=== PATIENT | female | born 1955 | race Caucasian/White ===

== ENCOUNTER 2017-06-11 14:28 | Inpatient (IN) | payer OTHER ==
[~2017-06-11] VITALS: Ht 160 cm; Wt 77.3 kg
[2017-06-11 16:01] LABS: HEMOGLOBIN 10.4 gm/dl (12.3-15.3); RED BLOOD COUNT 3.49 M/UL (4.00-5.10); WHITE BLOOD COUNT 8.4 K/UL (4.5-11.0)
[2017-06-11 16:23] LABS: BUN/CREATININE RATIO 18 (0-10)
[2017-06-11] MEDS ORDERED: CATAPRES 0.1MG0.1 MG PO (22:58)
[2017-06-11] MEDS ORDERED: ZESTRIL 40 MG T40 MG PO (23:02)
[2017-06-11] MEDS ORDERED: NORVASC10 MG PO (23:03)
[2017-06-11] MEDS ORDERED: ASPIR 8181 MG PO (23:04)
[2017-06-11] MEDS ORDERED: NEURONTIN400 MG PO (23:07)
[2017-06-11] MEDS ORDERED: QUETIAPINE FUM100 MG PO (23:09)
[2017-06-11] MEDS ORDERED: INDOCIN 50 MG C50 MG PO (23:10)
[2017-06-11] MEDS ORDERED: MIRTAZAPINE15 MG PO (23:13)
[2017-06-11] MEDS ORDERED: SINGULAIR10 MG PO (23:14)
[2017-06-11] MEDS ORDERED: ZANTAC 150 MG150 MG PO (23:15)
[2017-06-11] MEDS ORDERED: VISTARIL 25 MG25 MG PO (23:16)
[2017-06-11] MEDS ORDERED: ZOFRAN ODT4 MG PO (23:17)
[2017-06-11] MEDS ORDERED: TRAMADOL-ACETA1 EACH PO (23:18)
[2017-06-11 23:26] LABS: HEMOGLOBIN 10.2 gm/dl (12.3-15.3)
[2017-06-12 07:16] LABS: HEMOGLOBIN 11.3 gm/dl (12.3-15.3)
[2017-06-13 04:29] LABS: HEMOGLOBIN 10.2 gm/dl (12.3-15.3); RED BLOOD COUNT 3.51 M/UL (4.00-5.10)
[2017-06-13 04:31] LABS: WHITE BLOOD COUNT 5.8 K/UL (4.5-11.0)
[2017-06-13 04:34] LABS: ADENOVIRUS F 40/41 Not Detected (Negative); ASTROVIRUS Not Detected (Negative); CAMPYLOBACTER Not Detected (Negative); CLOSTRIDIUM DIFFICILE TOX A/B Not Detected (Negative); CRYPTOSPORIDIUM Not Detected (Negative); E.COLI 0157 Not Detected (Negative); ENTAMOEBA HISTOLYTICA Not Detected (Negative); ENTEROAGGREGATIVE E.COLI (EAEC Not Detected (Negative); GIARDIA LAMBLIA Not Detected (Negative); NOROVIRUS GI/GII Not Detected (Negative); PLESIOMONAS SHIGELLOIDES Not Detected (Negative); ROTOVIRUS A Not Detected (Negative); SALMONELLA Not Detected (Negative); SAPOVIRUS Not Detected (Negative); SHIGA-LIK TOX.PRO.E.COLI (STEC Not Detected (Negative); VIBRIO Not Detected (Negative); VIBRIO CHOLERAE Not Detected (Negative); YERSINIA ENTEROCOLITICA Not Detected (Negative)
[2017-06-13 15:33] LABS: ENTEROPATHOGENIC E.COLI (EPEC) DETECTED (Negative)
[2017-06-13 15:34] LABS: ENTEROTOXIGENIC E.COLI (ETEC) DETECTED (Negative)
[2017-06-14 04:25] LABS: HEMOGLOBIN 9.9 gm/dl (12.3-15.3); RED BLOOD COUNT 3.42 M/UL (4.00-5.10)
[2017-06-14 04:27] LABS: WHITE BLOOD COUNT 7.5 K/UL (4.5-11.0)
[2017-06-15 04:22] LABS: RED BLOOD COUNT 4.68 M/UL (4.00-5.10); WHITE BLOOD COUNT 9.6 K/UL (4.5-11.0)
[2017-06-15 04:23] LABS: HEMOGLOBIN 14.2 gm/dl (12.3-15.3)
[2017-06-15 04:40] LABS: BUN/CREATININE RATIO 28 (0-10)
[2017-06-16 05:45] LABS: WHITE BLOOD COUNT 12.7 K/UL (4.5-11.0)
[2017-06-16 07:09] LABS: BUN/CREATININE RATIO 17 (0-10)
[2017-06-16 07:31] LABS: RED BLOOD COUNT 4.02 M/UL (4.00-5.10)
[2017-06-16 07:32] LABS: HEMOGLOBIN 11.7 gm/dl (12.3-15.3)
[2017-06-16 15:05] LABS: SHIG/ENTEROINVAS.ECOLI (EIEC) DETECTED (Negative)
[2017-06-16 23:02] LABS: ADENOVIRUS F 40/41 Not Detected (Negative); ASTROVIRUS Not Detected (Negative); CAMPYLOBACTER Not Detected (Negative); CLOSTRIDIUM DIFFICILE TOX A/B Not Detected (Negative); CRYPTOSPORIDIUM Not Detected (Negative); E.COLI 0157 Not Detected (Negative); ENTAMOEBA HISTOLYTICA Not Detected (Negative); ENTEROAGGREGATIVE E.COLI (EAEC Not Detected (Negative); ENTEROPATHOGENIC E.COLI (EPEC) Not Detected (Negative); ENTEROTOXIGENIC E.COLI (ETEC) Not Detected (Negative); GIARDIA LAMBLIA Not Detected (Negative); NOROVIRUS GI/GII Not Detected (Negative); PLESIOMONAS SHIGELLOIDES Not Detected (Negative); ROTOVIRUS A Not Detected (Negative); SALMONELLA Not Detected (Negative); SAPOVIRUS Not Detected (Negative); SHIG/ENTEROINVAS.ECOLI (EIEC) Not Detected (Negative); SHIGA-LIK TOX.PRO.E.COLI (STEC Not Detected (Negative); VIBRIO Not Detected (Negative); VIBRIO CHOLERAE Not Detected (Negative); YERSINIA ENTEROCOLITICA Not Detected (Negative)
[2017-06-17 05:30] LABS: BUN/CREATININE RATIO 14 (0-10)
[2017-06-18 05:42] LABS: BUN/CREATININE RATIO 12 (0-10)
[2017-06-19 05:44] LABS: BUN/CREATININE RATIO 7 (0-10)
[2017-06-20 05:41] LABS: BUN/CREATININE RATIO 7 (0-10)
[2017-06-21] MEDS ORDERED: IRON325 M1 PO (16:59)
[2017-06-21] MEDS ORDERED: PROTONIX40 MG PO (17:00)
[2017-06-21] MEDS ORDERED: LACTINEX TABLET1 EA PO (17:01)
[2017-06-21] MEDS ORDERED: HYDRALAZINE HCL25 MG PO (17:02)
[2017-06-21] MEDS ORDERED: NEURONTIN 100100 MG PO (17:34)
== END 2017-06-21 18:43 | disposition home or self-care (01) | DRG 682 ==
LOC: ER1 14:28 → M/S 18:12 → ZEROF 18:12 → PROG CARE 18:12 → M/S 06-16 14:50
PROVIDERS: Family Medicine; Internal Medicine; ADMIT Family Medicine
PROC: 06HM33Z Insertion of Infusion Device into Right Femoral Vein, Percutaneous Approach (ICD-10-PCS; principal; 2017-06-17)
DX: N17.9 Acute kidney failure, unspecified (principal); G92 Toxic encephalopathy; R57.1 Hypovolemic shock; E87.2 Acidosis; F11.20 Opioid dependence, uncomplicated; K92.2 Gastrointestinal hemorrhage, unspecified; E86.0 Dehydration; K52.9 Noninfective gastroenteritis and colitis, unspecified; J84.10 Pulmonary fibrosis, unspecified; D50.9 Iron deficiency anemia, unspecified; I10 Essential (primary) hypertension; E87.6 Hypokalemia; K21.9 Gastro-esophageal reflux disease without esophagitis; E88.09 Other disorders of plasma-protein metabolism, not elsewhere classified; Z22.322 Carrier or suspected carrier of Methicillin resistant Staphylococcus aureus; M19.90 Unspecified osteoarthritis, unspecified site; G89.29 Other chronic pain; M54.9 Dorsalgia, unspecified; F32.9 Major depressive disorder, single episode, unspecified; F41.9 Anxiety disorder, unspecified; Z91.14 Patient's other noncompliance with medication regimen; Z79.82 Long term (current) use of aspirin; Z79.899 Other long term (current) drug therapy; Z90.49 Acquired absence of other specified parts of digestive tract; Z98.890 Other specified postprocedural states; Z80.0 Family history of malignant neoplasm of digestive organs; Z82.49 Family history of ischemic heart disease and other diseases of the circulatory system; Z83.3 Family history of diabetes mellitus
CPT/HCPCS: ECHO; 36415; 70450; 71010; 71020; 80048; 80053; 80202; 80307; 81001; 82272; 82436; 82550; 82553; 82570; 82962; 83036; 83540; 83550; 83605; 83735; 83874; 83880; 84132; 84133; 84156; 84300; 84439; 84443; 84484; 85014; 85018; 85025; 85027; 85045; 85610; 85730; 86140; 86850; 86900; 86901; 86920; 87040; 87070; 87077; 87086; 87186; 87205; 87507; 93005; 93306; 94640; 94664; 96361; 96374; 97110; 97116; 97530; 97535; 99291; C1751; G0480; J0360; J0780; J1265; J2310; J2405; J2550; J3370; J3480; J3486; J7030; J7040; J7050; J7070

== ENCOUNTER 2022-05-25 15:40 | Emergency (ER) | payer OTHER ==
[~2022-05-25 15:40] MED LIST: ASPIR 8181 MG PO; AUGMENTIN 875-1 EACH PO; CATAPRES 0.1MG0.1 MG PO; HYDRALAZINE HCL25 MG PO; IBUPROFEN600 MG PO; INDOCIN 50 MG C50 MG PO; IRON325 M1 PO; K-DUR TAB 20 M20 MEQ PO; LACTINEX TABLET1 EA PO; LEVAQUIN750 MG PO; MIRALAX17 GM PO; MIRTAZAPINE15 MG PO; NEURONTIN 100100 MG PO; NEURONTIN400 MG PO; NORVASC10 MG PO; PHENERGAN 12.12.5 M1 PO; PHENERGAN 25 MG25 M1 PO; POTASSIUM CHLO20 ME2 PO; PREDNISONE10 MG PO; PREDNISONE20 MG PO; PROTONIX40 MG PO; QUETIAPINE FUM100 MG PO; SEROQUEL100 MG PO; SINGULAIR10 MG PO; TRAMADOL HCL50 MG PO; TRAMADOL-ACETA1 EACH PO; VISTARIL 25 MG25 MG PO; ZANTAC 150 MG150 MG PO; ZESTRIL 40 MG T40 MG PO; ZOFRAN ODT 4 MG4 MG PO; ZOFRAN ODT4 MG PO; ZOFRAN4 MG PO; ZOFRAN8 MG PO
[2022-05-25 17:18] LABS: HEMOGLOBIN 13.3 gm/dl (12.3-15.3); RED BLOOD COUNT 4.09 M/UL (4.00-5.10); WHITE BLOOD COUNT 4.9 K/UL (4.5-11.0)
[2022-05-25 17:42] LABS: BUN/CREATININE RATIO 18 (0-10)
[2022-05-25] MEDS ORDERED: ASPIRIN CHEWABL81 MG PO (18:52)
[2022-05-25] MEDS ORDERED: NITROSTAT0.4 MG SL (18:52)
== END 2022-05-25 19:07 | disposition short-term general hospital (02) ==
LOC: ER1 15:40 → CDU 17:56 → ER1 19:07
PROVIDERS: Emergency Medicine
DX: R07.9 Chest pain, unspecified (principal); J44.9 Chronic obstructive pulmonary disease, unspecified; I10 Essential (primary) hypertension
CPT/HCPCS: 71045; 80053; 82550; 82553; 84484; 85025; 93005; 96374; 99285; J2405